=== PATIENT | male | born 1995 | race Caucasian/White ===

== ENCOUNTER 2017-09-02 16:54 | Emergency (ER) | payer OTHER ==
[~2017-09-02] VITALS: Ht 167.6 cm; Wt 80.7 kg
[2017-09-02] MEDS ORDERED: ZITHROMAX500 MG PO (19:09)
== END 2017-09-02 19:14 | disposition home or self-care (01) ==
LOC: ER 16:54
DX: H93.8X3 Other specified disorders of ear, bilateral (principal); J32.8 Other chronic sinusitis

== ENCOUNTER 2024-04-27 08:02 | Outpatient (CLI) | payer OTHER ==
[~2024-04-27 08:02] MED LIST: ZITHROMAX500 MG PO
== END 2024-04-27 08:11 | disposition home or self-care (01) ==
LOC: MRI 08:02
DX: M24.411 Recurrent dislocation, right shoulder (principal); M75.121 Complete rotator cuff tear or rupture of right shoulder, not specified as traumatic
CPT/HCPCS: 73221